=== PATIENT | female | born 1965 | race Caucasian/White ===

== ENCOUNTER 2018-02-05 12:10 | Emergency (ER) | payer OTHER ==
[2018-02-05] MEDS ORDERED: Adacel (T-DAP) 0.5 ML VIAL ONE (13:01)
== END 2018-02-05 13:16 | disposition home or self-care (01) ==
LOC: NAV ERS 12:10
DX: S01.81XA Laceration without foreign body of other part of head, initial encounter (principal); F17.200 Nicotine dependence, unspecified, uncomplicated; Z79.899 Other long term (current) drug therapy; W01.198A Fall on same level from slipping, tripping and stumbling with subsequent striking against other object, initial encounter
CPT/HCPCS: 12011; 90471; 90715